=== PATIENT | female | born 1980 | race Asian ===

== ENCOUNTER 2018-03-28 06:28 | Emergency (ER) | payer MEDICAID ==
[~2018-03-28] VITALS: Ht 154.9 cm; Wt 63.9 kg
[2018-03-28 06:59] LABS: CLARITY,URINE Clear (Clear); COLOR,URINE Yellow (Yellow); GLUCOSE, URINE Negative (Neg); KETONES,URINE Negative (Neg); LEUKOCYTE ESTERASE ,URINE Trace (Neg); NITRITES, URINE Negative (Neg); OCCULT BLOOD,URINE Negative (Neg); PH,URINE 6.5 (4.8-8.0); PROTEIN,URINE Trace mg/dl (Neg); URINE HCG NEGATIVE (NEG)
[2018-03-28 07:00] LABS: UA COLLECTION TYPE CLN CATCH MIDSTREAM
[2018-03-28 07:06] LABS: BACTERIA,URINE FEW /HPF (Neg); MUCUS STRANDS NONE SEEN /LPF (Neg); RBC,URINE 0-2 /HPF (0-2); SQUAMOUS EPITHELIAL CELL,UR MODERATE /LPF (FEW); WBC,URINE NONE SEEN /HPF (0-4)
[2018-03-28 07:12] LABS: BASOPHILS % (AUTO) 0.1 % (0-1); EOSINOPHILS # (AUTO) 0.2 X10'3 (0-0.9); EOSINOPHILS % (AUTO) 1.5 % (0-6); HEMATOCRIT 36.8 % (35.0-45.0); HEMOGLOBIN 12.9 g/dl (12.0-16.0); LYMPHOCYTES % (AUTO) 12.3 % (21-51); MEAN CORPUSCULAR HGB CONC 35.1 % (33.0-36.5); MEAN CORPUSCULAR VOLUME 88.2 FL (78-98); MEAN PLATELET VOLUME 8.6 FL (7.4-10.4); MONOCYTES # (AUTO) 0.6 X10'3 (0-0.9); MONOCYTES % (AUTO) 3.4 % (2-12); NEUTROPHILS # (AUTO) 13.6 X10'3 (1.8-7.7); NEUTROPHILS % (AUTO) 82.7 % (42-75); PLATELET COUNT 257 X10'3 (140-440); RED BLOOD COUNT 4.17 X10'6 (4.20-5.60); WHITE BLOOD COUNT 16.5 X10'3 (4.5-11.0)
[2018-03-28 07:21] LABS: PROTHROMBIN TIME 10.3 SECONDS (9.0-12.0)
[2018-03-28] MEDS ORDERED: morphine 4 MG/ML inj SYRINge IV PRN (07:25)
[2018-03-28] MEDS ORDERED: ondansetron/PF 4mg/2ml inj IV ONE (07:25)
[2018-03-28] MEDS ORDERED: normal saline 1000ML IV soln IVB ONE (07:25)
[2018-03-28 07:27] LABS: ALANINE AMINOTRANSFERASE 69 U/L (12-78); ALBUMIN 4.2 G/DL (3.4-5.0); ALBUMIN/GLOBULIN RATIO 1.2 (1.1-1.5); ALKALINE PHOSPHATASE 67 IU/L (46-116); ANION GAP 10 (8-16); ASPARTATE AMINO TRANSFERASE 33 U/L (10-37); BILIRUBIN,TOTAL 0.5 MG/DL (0.1-1.0); BLOOD UREA NITROGEN 13 MG/DL (7-18); BUN/CREATININE RATIO 18.3 (6.6-38.0); CALCIUM 8.9 MG/DL (8.5-10.1); CHLORIDE 104 MMOL/L (99-107); CREATININE 0.71 MG/DL (0.40-0.90); GLUCOSE 149 MG/DL (70-104); POTASSIUM 3.8 MMOL/L (3.5-5.1); SODIUM 140 MMOL/L (135-145); TOTAL CARBON DIOXIDE 25.6 MMOL/L (24-32); TOTAL PROTEIN 7.7 G/DL (6.4-8.2); eGFR > 90 ML/MIN
[2018-03-28 07:55] LABS: LIPASE 93 U/L (73-393)
[2018-03-28] MEDS ORDERED: ONDA4TAB6 PO ×2 (09:00)
[2018-03-28 09:33] VITALS: BP 100/52
== END 2018-03-28 09:36 | disposition home or self-care (01) ==
LOC: ER 06:29
DX: R10.13 Epigastric pain (principal); R11.2 Nausea with vomiting, unspecified; R19.7 Diarrhea, unspecified; Z79.899 Other long term (current) drug therapy
CPT/HCPCS: 36415; 80053; 81001; 81025; 83690; 85025; 85610; 87088; 96361; 96374; 96375; 99284; J2270; J2405; J7030

== ENCOUNTER 2018-04-02 00:30 | Emergency (ER) | payer MEDICAID ==
[~2018-04-02] VITALS: Ht 154.9 cm; Wt 63.9 kg
[~2018-04-02 00:30] MED LIST: ONDA4TAB6 PO
[2018-04-02 00:42] VITALS: BP 112/77
[2018-04-02] MEDS ORDERED: TRAM50TA2 PO (01:16)
== END 2018-04-02 01:51 | disposition home or self-care (01) ==
LOC: ER 00:32
DX: M62.838 Other muscle spasm (principal); R07.81 Pleurodynia; Z79.899 Other long term (current) drug therapy
CPT/HCPCS: 71045; 99283